=== PATIENT | female | born 1960 | race Caucasian/White ===

== ENCOUNTER → 2018-10-03 | Outpatient (CLI) | payer BC ==
--- NOTE | 2018-10-08 09:52 | P.ARTDOP ---
Arterial Doppler LOWER EXTREMITY ARTERIAL DOPPLER: DATE OF SERVICE: 10/03/2018 Reason for study: Bilateral leg pain with walking. Doppler waveforms: Appears multiphasic bilaterally throughout. Pulse volume recording: Blunted throughout on the right and distally on the left.. Pressure gradients: Gradients even at the upper thigh level.. Ankle-brachial indices: 0.62 on the right and 0.64 on the left. Toe pressures: 62 on the right, not registered on the left Impression: At least moderate bilateral iliofemoral disease. Vascular surgical consultation is suggested..
== END | disposition home or self-care (01) ==
LOC: RADUSWWP 13:20
PROVIDERS: ATTEND Family Medicine
DX: I73.9 Peripheral vascular disease, unspecified (principal)
CPT/HCPCS: 93923

== ENCOUNTER → 2018-11-07 | Outpatient (CLI) | payer BC ==
--- NOTE | 2018-11-07 11:46 | BD ---
EXAMINATION TYPE: Axial Bone Density DATE OF EXAM: 11/07/2018 COMPARISON: Previous dated 11/08/2014 CLINICAL HISTORY: Osteopenia Height: 5 FT 2 1/2 IN Weight: 153 FRAX RISK QUESTIONS: Current Tobacco Use: YES RISK FACTORS HISTORY OF: Active: YES Postmenopausal woman: AGE 48 MEDICATIONS: Additional Medications: SIMVASTATIN, METFORMIN, TWO BLOOD PRESSURE PILLS, CALCIUM ,IRON, Additional History: EXAM MEASUREMENTS: Bone mineral densitometry was performed using the [employer] System. Bone mineral density as measured about the Lumbar spine is: ----- L1-L4(G/cm2): 0.876 T Score Values are as follows: ----- L2: -2.9 ----- L3: -2.4 ----- L4: -2.1 ----- L1-L4: -2.5 Bone mineral density has: INCREASED 2.4 SINCE STUDY 2014 Bone mineral density about the R hip (g/cm2): 0.690 Bone mineral density about the L hip (g/cm2): 0.694 T Score values are as follows: -----R Neck: -2.5 -----L Neck: -2.5 -----R Total: -2.3 -----L Total: -2.3 Bone mineral density has: DECREASED -9.5 SINCE STUDY 2014 IMPRESSION: Osteoporosis (T Score less than -2.5). There is increased fracture risk and therapy is usually indicated based on age. Re-Screen 1-2 years. NOTE: T-SCORE=SD OF THE YOUNG ADULT MEAN.
--- NOTE | 2018-11-10 10:56 | MM ---
Reason for exam: screening (asymptomatic). Last mammogram was performed 3 years and 5 months ago. History: Patient is postmenopausal. Excisional biopsy of the left breast, 2012. Physical Findings: A clinical breast exam by your physician is recommended on an annual basis and results should be correlated with mammographic findings. MG Screening Mammo w CAD Bilateral CC and MLO view(s) were taken. Prior study comparison: June 10, 2015, bilateral MG screening mammo w CAD. February 13, 2013, CAD bilateral diagnostic mammogram. The breast tissue is heterogeneously dense. This may lower the sensitivity of mammography. There is a new group of calcifications in the right central lower breast at anterior depth. No suspicious abnormality on the left. ASSESSMENT: Incomplete: need additional imaging evaluation, BI-RAD 0 RECOMMENDATION: Special view mammogram of the right breast. [facility] will attempt to contact patient to return for supplemental views.
== END ==
LOC: RADBDWWP 10:30
PROVIDERS: ATTEND Obstetrics & Gynecology
DX: Z12.31 Encounter for screening mammogram for malignant neoplasm of breast (principal); M81.0 Age-related osteoporosis without current pathological fracture
CPT/HCPCS: 77067; 77080